=== PATIENT | female | born 1995 | race Two or more races ===

== ENCOUNTER 2020-06-16 09:11 | Emergency (ER) | payer OTHER ==
[2020-06-16 09:26] VITALS: BP 148/80; PULSE 85; TEMP 98.7; BMI 50.3
[2020-06-16 10:44] LABS: EPI CELLS 24 /uL (0-25.1); HYALINE CASTS 0 /uL (0-3.1); URINE APPEARANCE CLOUDY; URINE BACTERIA 114 /uL (0-1359); URINE BILIRUBIN NEGATIVE (NEGATIVE); URINE COLOR YELLOW; URINE GLUCOSE (UA) NEGATIVE (NEGATIVE); URINE KETONE NEGATIVE (NEGATIVE); URINE LEUK ESTERASE NEGATIVE (NEGATIVE); URINE NITRITE NEGATIVE (NEGATIVE); URINE PROTEIN NEGATIVE (NEGATIVE); URINE UROBILINOGEN 0.2 mg/dL (0.2-1.0); URINE WBC 7 /uL (0-25.8)
[2020-06-16 14:23] LABS: URINE CRYSTALS URIC ACID /hpf
== END 2020-06-16 12:12 | disposition home or self-care (01) ==
LOC: JER 09:11
DX: N20.0 Calculus of kidney (principal)
CPT/HCPCS: 76775-TC; 81003; 84703; 87086; 99284-25